=== PATIENT | female | born 1955 | race African-American/Black ===

== ENCOUNTER 2019-10-16 00:11 | Emergency (ER) | payer SELFPAY ==
--- NOTE | 2019-10-16 02:12 | ER ---
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 pt stated she was seen by PCP prior to Thanksgiving. pt stated when she has a BM "it feels like something is trying to come out" pt stated "I think I have a tapeworm." a few months back pt stated she had a BM, wiped and "pulled and heard a pop". Transition of care: patient was not received from another setting of care. Onset of symptoms is unknown. Risk Assessment: Do you want to hurt yourself or someone else? Patient reports no desire to harm self or others. Initial Sepsis Screen: Does the patient meet any 2 criteria? No. Patient's initial sepsis screen is negative. Does the patient have a suspected source of infection? No. Patient's initial sepsis screen is negative. Care prior to arrival: None. 00:44 Method Of Arrival: Ambulatory rr5 00:44 Acuity: DIANE 4 rr5 Triage Assessment: 00:50 General: Appears in no apparent distress. Behavior is calm, cooperative. Pain: Denies rr5 pain. Historical: - Allergies: 00:50 No Known Allergies; rr5 - Home Meds: 00:50 None [Active]; rr5 - PMHx: 00:50 None; rr5 - PSHx: 00:50 Hysterectomy; rr5 - Immunization history:: Adult Immunizations unknown. - Social history:: Smoking status: Patient/guardian denies using tobacco, the patient reports quitting approximately 13 years ago. - Ebola Screening: : No symptoms or risks identified at this time. Screenin:01 Abuse screen: Denies threats or abuse. Nutritional screening: No deficits noted. jd3 Tuberculosis screening: No symptoms or risk factors identified. Fall Risk Ambulatory Aid- None/Bed Rest/Nurse Assist (0 pts). Gait- Normal/Bed Rest/Wheelchair (0 pts) Mental Status- Oriented to own ability (0 pts). Total Sant[place] Fall Scale indicates No Risk (0-24 pts). Assessment: 00:57 General: Appears in no apparent distress. uncomfortable, Behavior is calm, cooperative, jd3 appropriate for age. Pain: Denies pain. Noted to be pt reported intromittant pain in lower abdomin. no pain reported at this time. Neuro: Level of Consciousness is awake, alert, obeys commands, Oriented to person, place, time, situation. Cardiovascular: Capillary refill < 3 seconds Patient's skin is warm and dry. Respiratory: Airway is patent Respiratory effort is even, unlabored, Respiratory pattern is regular, symmetrical, Denies cough, shortness of breath. GI: Abdomen is round non-distended, Bowel sounds present X 4 quads. Abd is soft and non tender X 4 quads. Reports feeling like something is trying to come out of her rectum when she defecates. Patient currently denies bloody stool, constipation, diarrhea, nausea, rectal bleeding, vomiting. : No signs and/or symptoms were reported regarding the genitourinary system. EENT: No signs and/or symptoms were reported regarding the EENT system. Derm: Skin is intact, Skin is dry, Skin is normal, Skin temperature is warm. Musculoskeletal: Circulation, motion, and sensation intact. Range of motion: intact in all extremities. 01:56 Reassessment: Patient appears in no apparent distress at this time. No changes from jd3 previously documented assessment. Patient and/or family updated on plan of care and expected duration. Pain level reassessed. Patient is alert, oriented x 3, equal unlabored respirations, skin warm/dry/pink. 02:18 Reassessment: Patient appears in no apparent distress at this time. Patient is alert, rr5 oriented x 3, equal unlabored respirations, skin warm/dry/pink. discharge instruction given and explained without complaints made, verbalized understanding. Vital Signs: 00:43 BP 154 / 79; Pulse 82; Resp 16; Temp 97.6(TE); Pulse Ox 97% on R/A; Weight 118.39 kg rr5 (R); Height 5 ft. 7 in. (170.18 cm) (R); Pain 0/10; 01:56 BP 149 / 79; Pulse 66; Resp 17 S; Pulse Ox 95% on R/A; jd3 00:43 Body Mass Index 40.88 (118.39 kg, 170.18 cm) rr5 ED Course: 00:16 Patient arrived in ED. ag3 00:43 Arm band placed on Patient placed in an exam room, on a stretcher, on pulse oximetry, rr5 Patient notified of wait time. 00:50 Chris Salvador, RN is Primary Nurse. jd3 00:50 Triage completed. rr5 00:59 Jorge Sutherland MD is Attending Physician. tw4 01:02 Patient has correct armband on for positive identification. Bed in low position. Call jd3 light in reach. Side rails up X 1. Adult w/ patient. 01:17 Chris Salvador, BERNICE is Primary Nurse. jd3 02:12 Bernard Patel MD is Referral Physician. tw4 02:12 Christine Wilkins MD is Referral Physician. tw4 02:12 Kurt Velarde MD is Referral Physician. tw4 02:19 No provider procedures requiring assistance completed. Patient did not have IV access rr5 during this emergency room visit. Administered Medications: No medications were administered Outcome: 02:11 Discharge ordered by . tw4 02:19 Discharged to home ambulatory. rr5 02:19 Condition: stable 02:19 Discharge instructions given to patient, Instructed on discharge instructions, follow up and referral plans. medication usage, Demonstrated understanding of instructions, follow-up care, medications, Prescriptions given X 1. 02:20 Patient left the ED. rr5 Signatures: Chris Salvador, RN RN jJorge Nava MD MD tw4 Leatha Clarke ag3 Wilfred Hendricks RN RN rr5
[2019-10-16 03:55] VITALS: TEMP 97.6
[2019-10-16 03:57] VITALS: BP 149/79; O2SAT 95
--- NOTE | 2019-10-17 02:21 | EDPHYS ---
Physician Documentation [facility] Name: Maddy Villarreal Age: 63 yrs Sex: Female : 1955 Arrival Date: 10/16/2019 Time: 00:16 Bed 4 Private MD: ED Physician Jorge Sutherland HPI: 10/16 03:21 This 63 yrs old Black Female presents to ER via Ambulatory with complaints of RECTAL tw4 PROBLEM. 03:21 The patient presents to the emergency department with pain in the rectal area, that is tw4 mild. Onset: The symptoms/episode began/occurred just prior to arrival. Context: the patient has no known special context relating to the rectal area complaint(s). Modifying factors: The symptoms are alleviated by nothing, The symptoms are aggravated by nothing. Associate signs and symptoms: The patient has no apparent associated signs or symptoms. The patient has not experienced similar symptoms in the past. Historical: - Allergies: 00:50 No Known Allergies; rr5 - Home Meds: 00:50 None [Active]; rr5 - PMHx: 00:50 None; rr5 - PSHx: 00:50 Hysterectomy; rr5 - Immunization history:: Adult Immunizations unknown. - Social history:: Smoking status: Patient/guardian denies using tobacco, the patient reports quitting approximately 13 years ago. - Ebola Screening: : No symptoms or risks identified at this time. ROS: 03:21 Constitutional: Negative for fever, chills, and weight loss, Eyes: Negative for injury, tw4 pain, redness, and discharge, Cardiovascular: Negative for chest pain, palpitations, and edema, Respiratory: Negative for shortness of breath, cough, wheezing, and pleuritic chest pain. 03:21 Abdomen/GI: Positive for constipation, rectal pain, Negative for abdominal pain, nausea and vomiting, nausea, vomiting, and diarrhea, nausea, vomiting, diarrhea, abdominal cramps, abdominal distension, anorexia, dysphagia, hematemesis, black/tarry stool, rectal bleeding, bowel incontinence, flatulence. Exam: 03:21 Constitutional: This is a well developed, well nourished patient who is awake, alert, tw4 and in no acute distress. Head/Face: Normocephalic, atraumatic. Chest/axilla: Normal chest wall appearance and motion. Nontender with no deformity. No lesions are appreciated. Cardiovascular: Regular rate and rhythm with a normal S1 and S2. No gallops, murmurs, or rubs. Normal PMI, no JVD. No pulse deficits. Respiratory: Lungs have equal breath sounds bilaterally, clear to auscultation and percussion. No rales, rhonchi or wheezes noted. No increased work of breathing, no retractions or nasal flaring. 03:21 Abdomen/GI: Inspection: abdomen appears normal, Bowel sounds: normal, Palpation: abdomen is soft and non-tender, Rectal exam: rectal tone normal, Stool: brown, guaiac negative, hemorrhoid(s), external, without bleeding, without inflammation, without thrombosis, without pain, mass, is not appreciated. Vital Signs: 00:43 BP 154 / 79; Pulse 82; Resp 16; Temp 97.6(TE); Pulse Ox 97% on R/A; Weight 118.39 kg rr5 (R); Height 5 ft. 7 in. (170.18 cm) (R); Pain 0/10; 01:56 BP 149 / 79; Pulse 66; Resp 17 S; Pulse Ox 95% on R/A; jd3 00:43 Body Mass Index 40.88 (118.39 kg, 170.18 cm) rr5 MDM: 01:46 Patient medically screened. tw4 03:21 Differential diagnosis: hemorrhoids. Data reviewed: vital signs, nurses notes. Data tw4 interpreted: Pulse oximetry: Interpretation: normal. Counseling: I had a detailed discussion with the patient and/or guardian regarding: the historical points, exam findings, and any diagnostic results supporting the discharge/admit diagnosis. Special discussion: I discussed with the patient/guardian in detail that at this point there is no indication for admission to the hospital. It is understood, however, that if the symptoms persist or worsen the patient needs to return immediately for re-evaluation. Administered Medications: No medications were administered Disposition: 10/16/19 02:11 Discharged to Home. Impression: Constipation, unspecified. - Condition is Stable. - Discharge Instructions: Constipation, Adult, High-Fiber Diet. - Prescriptions for Colace 100 mg Oral Tablet - take 1 tablet by ORAL route every 12 hours; 14 tablet. - Medication Reconciliation Form, Thank You Letter, Antibiotic Education, Prescription Opioid Use form. - Follow up: Private Physician; When: Upon discharge from the Emergency Department; Reason: Recheck today's complaints, Continuance of care. Follow up: Bernard Patel MD; When: Upon discharge from the Emergency Department; Reason: Recheck today's complaints, Continuance of care. Follow up: Christine Wilkins MD; When: Upon discharge from the Emergency Department; Reason: Recheck today's complaints, Continuance of care. Follow up: Kurt Velarde MD; When: Upon discharge from the Emergency Department; Reason: Recheck today's complaints, Continuance of care. - Problem is new. - Symptoms have improved. Signatures: Jorge Sutherland MD MD tw4 Wilfred Hendricks RN RN rr5 Corrections: (The following items were deleted from the chart) 02:13 02:11 10/16/2019 02:11 Discharged to Home. Impression: Constipation, unspecified. tw4 Condition is Stable. Forms are Medication Reconciliation Form, Thank You Letter, Antibiotic Education, Prescription Opioid Use. Follow up: Private Physician; When: Upon discharge from the Emergency Department; Reason: Recheck today's complaints, Continuance of care. Problem is new. Symptoms have improved. tw4 02:20 02:13 10/16/2019 02:11 Discharged to Home. Impression: Constipation, unspecified. rr5 Condition is Stable. Discharge Instructions: Constipation, Adult, High-Fiber Diet. Prescriptions for Colace 100 mg Oral Tablet - take 1 tablet by ORAL route every 12 hours; 14 tablet. and Forms are Medication Reconciliation Form, Thank You Letter, Antibiotic Education, Prescription Opioid Use. Follow up: Private Physician; When: Upon discharge from the Emergency Department; Reason: Recheck today's complaints, Continuance of care. Follow up: Bernard Patel; When: Upon discharge from the Emergency Department; Reason: Recheck today's complaints, Continuance of care. Follow up: Christine Wilkins; When: Upon discharge from the Emergency Department; Reason: Recheck today's complaints, Continuance of care. Follow up: Kurt Velarde; When: Upon discharge from the Emergency Department; Reason: Recheck today's complaints, Continuance of care. Problem is new. Symptoms have improved. tw4
== END 2019-10-16 02:20 | disposition home or self-care (01) ==
LOC: ER 00:11
DX: K59.00 Constipation, unspecified (principal)
CPT/HCPCS: 99283

== ENCOUNTER 2020-10-12 01:20 | Inpatient (IN) | payer SELFPAY ==
--- OUTSIDE RECORDS SUMMARY | 2020-10-12 01:22 | XMS REPORT | Clinical Summary ---
:1955 Author Organization [facility] Address [address] [place] [id number] Care Team Providers Name Role Phone Asked, Pcp Primary Care Provider Unavailable Allergies Active Allergy Reactions Severity Noted Date Comments Milk Other (See Comments) 06/20/2017 headach e Medications No known medications Active Problems Problem Noted Date Fatigue Surgical History Surgery Date Site/Laterality Comments TOTAL ABDOMINAL HYSTERECTOMY 11/12/1992 - 11/11/1993 done for fibroids Medical History Medical History Date Comments Fatigue Family History Medical History Relation Name Comments Dementia Brother Diabetes Brother Ovarian cancer Maternal Grandmother Alzheimer's disease Mother Diabetes Mother Hypertension Mother Ovarian cancer Paternal Grandmother Relation Name Status Comments Brother Alive Father Maternal Grandmother Mother Alive Paternal Grandmother Social History Tobacco Use Types Packs/Day Years Used Date Former Smoker Cigarettes Alcohol Use Drinks/Week oz/Week Comments No Sex Assigned at Date Recorded Not on file Obstetrics History Grav Para Term Pre Abrt (TAB) (SAB) (Ect) Mult Lvng Comments 5 2 2 3 2 1 2 Date Outcome GA Total Labor/2nd/3rd Weight Sex Delivery Anes PTL Cecilia A 1 A5 Name Clin Labor Term M Vag-Spont Term F Vag-Spont SAB SAB Ectopic Last Filed Vital Signs Not on file Plan of Treatment Health Maintenance Due Date Last Done Comments CERVICAL CANCER SCREENING 1978 COLONOSCOPY SCREENING 2007 SHINGLES VACCINES (#1) 2007 BREAST CANCER SCREENING 06/20/2019 06/20/2017 INFLUENZA VACCINE 06/12/2020 Results Not on fileafter 10/12/2019 Advance Directives For more information, please contact: [phone] Type Date Recorded 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
[2020-10-12] MEDS ORDERED: HYDROMORPHONE HCL 1 MG/ML INJ ONE ×2 (02:31→04:40)
[2020-10-12] MEDS ORDERED: ONDANSETRON 4 MG/2 ML VIAL ONE ×3 (02:31→11:05)
[2020-10-12] MEDS ORDERED: MAGNES/ALUMIN/SIMET 30ML UCUP ONE (02:31)
[2020-10-12] MEDS ORDERED: NA CHLORIDE 0.9% 1,000 ML ONE (02:31)
[2020-10-12] MEDS ORDERED: FAMOTIDINE 20 MG/2 ML VIAL IV ONE (02:32)
[2020-10-12 02:45] LABS: Absolute Lymphocytes (CBC) 2.5 K/uL (0.7-4.9); Basophils % 1.2 % (0-1.3); Hematocrit 36.9 % (36.0-45.0); RBC Red Blood Cell Count 4.33 M/uL (3.86-4.86)
[2020-10-12 02:56] LABS: ALT/SGPT 21 U/L (12-78); AST/SGOT 20 U/L (15-37); Albumin 3.6 g/dL (3.4-5.0); Alkaline Phosphatase 83 U/L (45-117); BUN Blood Urea Nitrogen 9 mg/dL (7-18); Bicarbonate 27 mmol/L (21-32); Bilirubin Direct 0.1 mg/dL (0-0.2); Bilirubin Total 0.5 mg/dL (0.2-1.0); Glucose Level 103 mg/dL (74-106); Lipase 53 U/L (73-393); Potassium 3.5 mmol/L (3.5-5.1); Protein, Total 7.9 g/dL (6.4-8.2); Sodium Level 144 mmol/L (136-145)
[2020-10-12] MEDS ORDERED: PIPER/TAZO/NS 3.375gm 3.375 GM/100 ML BAG ONE (04:32)
--- NOTE | 2020-10-12 04:37 | ER ---
Nurse's Notes [facility] Name: Maddy Villarreal Age: 64 yrs Sex: Female : 1955 Arrival Date: 10/12/2020 Time: 01:22 Bed 18 Private MD: Diagnosis: Acute appendicitis Presentation: 10/12 01:39 Chief complaint: Patient states: Epigastric pain since 1830 today, pain does not aj1 radiate. Patient reports nausea, denies V/D. Denies fever. Coronavirus screen: Client denies travel out of the [place] in the last 14 days. At this time, the client does not indicate any symptoms associated with coronavirus-19. Ebola Screen: Patient denies travel to an Ebola-affected area in the 21 days before illness onset. Initial Sepsis Screen: Does the patient meet any 2 criteria? No. Patient's initial sepsis screen is negative. Does the patient have a suspected source of infection? Yes: Acute abdominal pain. Risk Assessment: Do you want to hurt yourself or someone else? Patient reports no desire to harm self or others. Onset of symptoms was October 11, 2020 at 18:30. 01:39 Method Of Arrival: Ambulatory aj1 01:39 Acuity: DIANE 3 aj1 Triage Assessment: 01:40 General: Appears in no apparent distress. uncomfortable, Behavior is calm, cooperative, aj1 appropriate for age. Pain: Complains of pain in epigastric area. GI: Reports upper abdominal pain, nausea, Patient currently denies diarrhea, vomiting. Historical: - Allergies: 01:40 No Known Allergies; aj1 - Home Meds: 01:40 None [Active]; aj1 - PMHx: 01:40 None; aj1 - PSHx: 09:04 Hysterectomy; Tubal ligation; sv - Immunization history:: Flu vaccine is not up to date. - Social history:: Smoking status: Patient denies any tobacco usage or history of. Patient/guardian denies using alcohol, street drugs, The patient lives with family. - Family history:: not pertinent. Screenin:41 Abuse screen: Denies threats or abuse. Denies injuries from another. Nutritional aj1 screening: No deficits noted. Tuberculosis screening: No symptoms or risk factors identified. 07:20 Fall Risk None identified. sv Assessment: 01:41 General: Appears in no apparent distress. uncomfortable, Behavior is calm, cooperative, aj1 appropriate for age. Pain: Complains of pain in epigastric area Pain does not radiate. Pain currently is 8 out of 10 on a pain scale. Quality of pain is described as aching, Pain began 7 hours ago. Neuro: Level of Consciousness is awake, alert, obeys commands, Oriented to person, place, time, situation. Cardiovascular: Patient's skin is warm and dry. Respiratory: Airway is patent Respiratory effort is even, unlabored, Respiratory pattern is regular, symmetrical. GI: Abdomen is non-distended, Bowel sounds present X 4 quads. Abd is soft X 4 quads Abdomen is tender to palpation in epigastric area, right upper quadrant and left upper quadrant Reports upper abdominal pain, nausea, Patient currently denies diarrhea, vomiting. : No signs and/or symptoms were reported regarding the genitourinary system. EENT: No signs and/or symptoms were reported regarding the EENT system. Derm: No signs and/or symptoms reported regarding the dermatologic system. Skin is pink, warm \T\ dry. normal. Musculoskeletal: No signs and/or symptoms reported regarding the musculoskeletal system. Circulation, motion, and sensation intact. 02:29 Reassessment: After Dilaudid administration patient's O2 sat dropped to 89% on room aj1 air. Patient placed on O2 \T\ 2L per nc, O2 sat up to 97%. 03:08 Reassessment: Patient and/or family updated on plan of care and expected duration. Pain aj1 level reassessed. Reassessment: Patient states feeling better. Patient states symptoms have improved. General: Appears in no apparent distress. comfortable, Behavior is calm, cooperative, appropriate for age. Neuro: Level of Consciousness is awake, alert, obeys commands, Oriented to person, place, time, situation. Cardiovascular: Patient's skin is warm and dry. Respiratory: Airway is patent Respiratory effort is even, unlabored, Respiratory pattern is regular, symmetrical. Derm: Skin is pink, warm \T\ dry. normal. 04:20 Reassessment: Patient appears in no apparent distress at this time. Patient and/or sg family updated on plan of care and expected duration. Pain level reassessed. Patient is alert, oriented x 3, equal unlabored respirations, skin warm/dry/pink. pt complaining of pain at this time, at bedside updating pt on results and need for admission for evaluation and possible surgery due to appendicitis, pt stated understanding, V/O received per for Dilaudid 1 mg IVP for pain. 04:50 Reassessment: pt reports last PO intake was GI cocktail at 0314 by RN. sg Vital Signs: 01:39 BP 151 / 66; Pulse 64; Resp 18; Temp 97.8(O); Pulse Ox 99% on R/A; Weight 116.12 kg aj1 (R); Height 5 ft. 7 in. (170.18 cm) (R); Pain 8/10; 02:30 BP 146 / 53; Pulse 58; Resp 16; Pulse Ox 98% on 2 lpm NC; aj1 03:09 BP 143 / 52; Pulse 51; Resp 18; Pulse Ox 100% on R/A; aj1 07:23 BP 139 / 70; Pulse 53; Resp 18; Pulse Ox 100% ; sv 01:39 Body Mass Index 40.09 (116.12 kg, 170.18 cm) aj1 ED Course: 01:22 Patient arrived in ED. cl3 01:39 Adrienne Rae, RN is Primary Nurse. aj1 01:40 Triage completed. aj1 01:40 Arm band placed on Patient placed in an exam room. aj1 01:41 Patient has correct armband on for positive identification. Bed in low position. Call aj1 light in reach. Side rails up X 1. 01:41 No provider procedures requiring assistance completed. aj1 01:50 Willam Biswas MD is Attending Physician. ma2 03:13 Primary Nurse role handed off by Adrienne Rae, RN sg 03:13 Evgeny Ferris, RN is Primary Nurse. sg 03:19 Report given to BERNICE Fernandes. aj1 03:[address] via stretcher. sg 03:47 CT Abd/Pelvis - IV Contrast Only In Process Unspecified. EDMS 04:20 Initial lab(s) drawn, by me, sent to lab. a PT and Covid swab were obtained. sg 04:29 Chest Single View XRAY In Process Unspecified. EDMS 04:37 Audi Gonzales MD is Hospitalizing Provider. ma2 05:00 COVID swab sent to lab. sg 05:00 EKG done, by ED staff, reviewed by Willam Biswas MD. sg 08:00 Patient admitted, IV remains in place. intact. sv 08:46 Attending Physician role handed off by Willam Biswas MD cha 08:46 Johnson Garcia MD is Attending Physician. lee Administered Medications: 02:25 Drug: Zofran (Ondansetron) 4 mg Route: IVP; Site: right antecubital; aj1 03:08 Follow up: Response: No adverse reaction aj1 02:25 Drug: Dilaudid 1 mg Route: IVP; Site: right antecubital; aj1 03:08 Follow up: Response: No adverse reaction; Pain is decreased aj1 02:25 Drug: NS 0.9% 1000 ml Route: IV; Rate: 1 bolus; Site: right antecubital; aj1 03:50 Follow up: Response: No adverse reaction; IV Status: Completed infusion; IV Intake: sg 990ml 02:26 Drug: Pepcid 20 mg Route: IVP; Site: right antecubital; aj1 03:08 Follow up: Response: No adverse reaction aj1 03:07 Drug: GI Cocktail without - (Maalox Suspension 30 ml, Lidocaine Liquid 2 % 15 aj1 ml) Route: PO; 03:50 Follow up: Response: No adverse reaction sg 04:20 Drug: Zosyn 3.375 grams Route: IVPB; Infused Over: 60 mins; Site: right antecubital; sg 05:20 Follow up: Response: No adverse reaction; IV Status: Completed infusion sg 04:40 Drug: Dilaudid 1 mg Route: IVP; Site: right antecubital; sg 05:35 Follow up: Response: No adverse reaction; Pain is decreased sg Intake: 03:50 IV: 990ml; Total: 990ml. sg Outcome: 04:37 Decision to Hospitalize by Provider. ma2 08:00 Admitted to ER Hold. Please see [facility] for further documentation. sv 08:00 Condition: stable 08:00 Instructed on the need for admit. 09:54 Patient left the ED. sv Signatures: Dispatcher [employer] EDMS Adrienne Rae RN RN aj1 Alva Mclean RN RN sv Gay, Steven, RN RN sg Anderson, Corey, MD MD cha Alzahri, Mohammad, MD MD ma2 Lewis, Charde cl3 Corrections: (The following items were deleted from the chart) 09:04 01:40 PSHx: None; aj1 sv
--- NOTE | 2020-10-12 04:37 | EDPHYS ---
Physician Documentation [facility] Name: Maddy Villarreal Age: 64 yrs Sex: Female : 1955 Arrival Date: 10/12/2020 Time: 01:22 Bed 18 Private MD: ED Physician Johnson Garcia HPI: 10/12 02:18 This 64 yrs old Black Female presents to ER via Ambulatory with complaints of Abdominal ma2 Pain. 02:18 The patient presents with abdominal pain. Onset: The symptoms/episode began/occurred ma2 gradually, 1 day(s) ago. Associated signs and symptoms: Pertinent negatives: nausea and vomiting, blood in stools, diarrhea, fever. Severity of pain: At its worst the pain was moderate in the emergency department the pain is unchanged. The patient has not experienced similar symptoms in the past. Historical: - Allergies: 01:40 No Known Allergies; aj1 - Home Meds: 01:40 None [Active]; aj1 - PMHx: 01:40 None; aj1 - PSHx: 09:04 Hysterectomy; Tubal ligation; sv - Immunization history:: Flu vaccine is not up to date. - Social history:: Smoking status: Patient denies any tobacco usage or history of. Patient/guardian denies using alcohol, street drugs, The patient lives with family. - Family history:: not pertinent. ROS: 02:18 Constitutional: Negative for fever, chills, and weight loss. ma2 02:18 All other systems are negative. Exam: 02:18 Constitutional: This is a well developed, well nourished patient who is awake, alert, ma2 and in no acute distress. Head/Face: Normocephalic, atraumatic. Eyes: Pupils equal round and reactive to light, extra-ocular motions intact. Lids and lashes normal. Conjunctiva and sclera are non-icteric and not injected. Cornea within normal limits. Periorbital areas with no swelling, redness, or edema. ENT: Nares patent. No nasal discharge, no septal abnormalities noted. Tympanic membranes are normal and external auditory canals are clear. Oropharynx with no redness, swelling, or masses, exudates, or evidence of obstruction, uvula midline. Mucous membranes moist. Neck: Trachea midline, no thyromegaly or masses palpated, and no cervical lymphadenopathy. Supple, full range of motion without nuchal rigidity, or vertebral point tenderness. No Meningismus. Chest/axilla: Normal chest wall appearance and motion. Nontender with no deformity. No lesions are appreciated. Cardiovascular: Regular rate and rhythm with a normal S1 and S2. No gallops, murmurs, or rubs. Normal PMI, no JVD. No pulse deficits. Respiratory: Lungs have equal breath sounds bilaterally, clear to auscultation and percussion. No rales, rhonchi or wheezes noted. No increased work of breathing, no retractions or nasal flaring. Abdomen/GI: Soft, non-tender, with normal bowel sounds. No distension or tympany. No guarding or rebound. No evidence of tenderness throughout. Back: No spinal tenderness. No costovertebral tenderness. Full range of motion. MS/ Extremity: Pulses equal, no cyanosis. Neurovascular intact. Full, normal range of motion. Neuro: Awake and alert, GCS 15, oriented to person, place, time, and situation. Cranial nerves II-XII grossly intact. Motor strength 5/5 in all extremities. Sensory grossly intact. Cerebellar exam normal. Normal gait. Vital Signs: 01:39 BP 151 / 66; Pulse 64; Resp 18; Temp 97.8(O); Pulse Ox 99% on R/A; Weight 116.12 kg aj1 (R); Height 5 ft. 7 in. (170.18 cm) (R); Pain 8/10; 02:30 BP 146 / 53; Pulse 58; Resp 16; Pulse Ox 98% on 2 lpm NC; aj1 03:09 BP 143 / 52; Pulse 51; Resp 18; Pulse Ox 100% on R/A; aj1 07:23 BP 139 / 70; Pulse 53; Resp 18; Pulse Ox 100% ; sv 01:39 Body Mass Index 40.09 (116.12 kg, 170.18 cm) [facility] MDM: 01:50 Patient medically screened. me2 02:18 Differential diagnosis: gastritis, gastroesophageal reflux disease, Irritable bowel ma2 syndrome, pancreatitis. 04:36 Data reviewed: vital signs, nurses notes. Counseling: I had a detailed discussion with ma2 the patient and/or guardian regarding: the historical points, exam findings, and any diagnostic results supporting the discharge/admit diagnosis, the presence of at least one elevated blood pressure reading (>120/80) during this emergency department visit, the need for outpatient follow up. Response to treatment: There is no appreciated change of the patient's symptoms at this time. 10/12 01:51 Order name: Basic Metabolic Panel; Complete Time: 03:37 ma2 10/12 01:51 Order name: CBC with Diff; Complete Time: 03:37 ma2 10/12 01:51 Order name: Hepatic Function; Complete Time: 03:37 ma2 10/12 01:51 Order name: Lipase; Complete Time: 03:37 ma2 10/12 04:05 Order name: PT-INR; Complete Time: 06:33 ma2 10/12 02:11 Order name: CT Abd/Pelvis - IV Contrast Only ma2 10/12 04:05 Order name: Chest Single View XRAY; Complete Time: 08:46 ma2 10/12 06:26 Order name: SARS-COV-2 RT PCR; Complete Time: 06:33 EDMS 10/12 01:51 Order name: IV Saline Lock; Complete Time: 02:26 ma2 10/12 01:51 Order name: Labs collected and sent; Complete Time: 02:26 ma2 10/12 04:02 Order name: NPO; Complete Time: 05:10 ma2 10/12 04:05 Order name: EKG - Nurse/Tech; Complete Time: 05:10 ma2 Administered Medications: 02:25 Drug: Zofran (Ondansetron) 4 mg Route: IVP; Site: right antecubital; aj1 03:08 Follow up: Response: No adverse reaction aj1 02:25 Drug: Dilaudid 1 mg Route: IVP; Site: right antecubital; aj1 03:08 Follow up: Response: No adverse reaction; Pain is decreased aj1 02:25 Drug: NS 0.9% 1000 ml Route: IV; Rate: 1 bolus; Site: right antecubital; aj1 03:50 Follow up: Response: No adverse reaction; IV Status: Completed infusion; IV Intake: sg 990ml 02:26 Drug: Pepcid 20 mg Route: IVP; Site: right antecubital; aj1 03:08 Follow up: Response: No adverse reaction aj1 03:07 Drug: GI Cocktail without - (Maalox Suspension 30 ml, Lidocaine Liquid 2 % 15 aj1 ml) Route: PO; 03:50 Follow up: Response: No adverse reaction sg 04:20 Drug: Zosyn 3.375 grams Route: IVPB; Infused Over: 60 mins; Site: right antecubital; sg 05:20 Follow up: Response: No adverse reaction; IV Status: Completed infusion sg 04:40 Drug: Dilaudid 1 mg Route: IVP; Site: right antecubital; sg 05:35 Follow up: Response: No adverse reaction; Pain is decreased sg Disposition: 10/12/20 04:37 Hospitalization ordered by Audi Gonzales for Inpatient Admission. Preliminary diagnosis is Acute appendicitis. - Bed requested for DAY SURGERY OTHER. - Status is Inpatient Admission. sv - Condition is Stable. - Problem is new. - Symptoms are unchanged. Signatures: Dispatcher [employer] EDMS Liberty Wolf Angela, RN RN aj1 Alva Mclean RN RN Evgeny Ferris RN RN Johnson Garcia MD MD cha Smirch, Shelby, RN RN Willam Biswas MD MD ma2 Corrections: (The following items were deleted from the chart) 05:11 04:03 CORONAVIRUS+MR.LAB.BRZ ordered. EDID EDMS 07:43 04:37 Hospitalization Ordered by Audi Gonzales MD for Inpatient Admission. Preliminary diagnosis is Acute appendicitis. Bed requested for Telemetry/MedSurg (Inpatient). Status is Inpatient Admission. Condition is Stable. Problem is new. Symptoms are unchanged. ma 09:04 01:40 PSHx: None; aj1 sv 09:29 07:43 10/12/2020 04:37 Hospitalization Ordered by Audi Gonzales MD for Inpatient bd Admission. Preliminary diagnosis is Acute appendicitis. Bed requested for [facility] ER HOLD. Status is Inpatient Admission. Condition is Stable. Problem is new. Symptoms are unchanged. ss 09:54 09:29 10/12/2020 04:37 Hospitalization Ordered by Audi Gonzales MD for Inpatient sv Admission. Preliminary diagnosis is Acute appendicitis. Bed requested for DAY SURGERY OTHER. Status is Inpatient Admission. Condition is Stable. Problem is new. Symptoms are unchanged. bd
[2020-10-12 04:50] LABS: Protime INR 1.03
--- NOTE | 2020-10-12 07:24 | RAD REPORT ---
EXAM DESCRIPTION: Hardeep Single View10/12/2020 4:28 am CLINICAL HISTORY: Abdominal pain/preop for abdominal surgery COMPARISON: none FINDINGS: The lungs appear clear of acute infiltrate. The heart is normal size IMPRESSION: No acute abnormalities displayed
[2020-10-12] MEDS ORDERED: ACETAMINOPHEN 325 MG TABLET PO PRN (08:53)
[2020-10-12] MEDS ORDERED: MORPHINE 2 MG/ML SYR IV PRN (08:53)
[2020-10-12] MEDS ORDERED: ONDANSETRON 4 MG/2 ML VIAL IV PRN (08:53)
[2020-10-12] MEDS: NA CHLORIDE 0.9% 1,000 ML IV SCH ×3 (09:00→20:40)
[2020-10-12 09:07] VITALS: BMI 40.0
[2020-10-12] MEDS ORDERED: ACETAMINOPHEN 325 MG TABLET ONE (09:19)
[2020-10-12] MEDS ORDERED: MORPHINE 2 MG/ML SYR ONE (09:19)
[2020-10-12] MEDS ORDERED: INFLUENZA VACCINE (for 3y+) 0.5 ML DOSE IMVAC ONE (11:00)
[2020-10-12] MEDS ORDERED: PIPER/TAZO/NS 3.375gm 3.375 GM/100 ML BAG IVPB SCH ×2 (11:00→17:00)
[2020-10-12] MEDS ORDERED: LIDOCAINE 2% MPF 5 ML VIAL ONE (11:05)
[2020-10-12] MEDS ORDERED: propofoL 200 MG/20 ML VIAL IV ONE (11:05)
[2020-10-12] MEDS ORDERED: ROCURONIUM 50 MG/5 ML VIAL IV ONE (11:05)
[2020-10-12] MEDS ORDERED: MIDAZOLAM HCL 2 MG/2 ML INJ ONE (11:05)
[2020-10-12] MEDS ORDERED: dexAMETHasone 10 MG/ML VIAL ONE (11:05)
[2020-10-12] MEDS ORDERED: FENTANYL CITR 100 MCG/2 ML ONE (11:05)
[2020-10-12] MEDS ORDERED: KETOROLAC 30 MG/ML INJ ONE (11:06)
--- NOTE | 2020-10-12 11:34 | HP ---
Date of Admission: 10/12/2020 Diagnosis: Acute appendicitis. History Of Present Illness: This is the case of a 64-year-old patient female who complained of abdom inal pain for about 1 day in duration. It gets worse associated with a nausea. No dysuria, hematuri a, hematochezia, melena. No recent traveling out of the country. No family member sick at home. Th e pain got worse. She comes today to the ER, diagnosed with appendicitis and emergent book in OR was done. Allergies: NONE. Medications: None. Medical History: None. Past Surgical History: Include hysterectomy with a midline incision and tubal ligation. Social History: She does not smoke. She does not drink alcohol. She has no previous colonoscopy, although she was advised the importance of colonoscopies on her age for screening. She was counseled about having colonoscopy even after the surgery in the next few wee ks when the emergency goes away. Review of Systems: See H and P. 10 points otherwise unremarkable. Physical Examination: General: The patient is awake, alert. Pupils: Equal and reactive, anicteric. Neck: Supple. Chest: Clear. Abdomen: Right lower quadrant tenderness with guarding and rebound. Psoas sign positive. Breasts: Deferred. Pelvic: Deferred. RECTAL: Deferred. Extremities: Good capillary refill. Neurologic: Cranial nerves 2 through 12 grossly within normal limits. Laboratory Data: Blood work shows WBC count of 10.1, hemoglobin of 12.2, and platelets of 218. INR is 1.03. Chloride is 112. Lipase 53. CAT scan of the abdomen and pelvis, official report still pen ding, although preliminary report interpreted by radiologist as findings consistent with acute append icitis, dilated appendix, surrounding inflammatory stranding present with appendicolith present in th e appendix. Assessment: This is a 64-year-old patient with acute appendicitis. Plan: The benefits, alternatives, and risks of emergent laparoscopic possible open appendectomy full y explained to the patient which include, but not limited to infection, bleeding, damage to adjacent structures, anesthesia complication, TN, and even . She also understands this may not relieve s ymptoms. She might need more than one surgical intervention. Once again, she was counseled the impo rtance of having a routine colonoscopy even after the surgery is done, especially after the surgery i s done since we will like to make sure that there is no neoplasia causing this appendicitis. At this time, we might not be able to determine that at this moment. DUNCAN/HOA Voice ID: [id number]
--- NOTE | 2020-10-12 11:39 | RAD REPORT ---
EXAM DESCRIPTION: CT - Abdomen Pelvis W Contrast - 10/12/2020 6:51 am ADDENDUM #1 THIS REPORT CONTAINS FINDINGS THAT MAY BE CRITICAL TO PATIENT CARE: The findings were verbally discussed via telephone conference with Dr. Willam Biswas by Dr. Kate Ramirez on 10/12/2020 4:00 AM FREE LANCE ARTIST .The results were acknowledged and understood. Electronically signed by: Lorena Ramirez MD 10/12/2020 4:00 AM FREE LANCE ARTIST End of Addendum EXAM DESCRIPTION: CT Abdomen and Pelvis With Intravenous Contrast CLINICAL HISTORY: The patient is 64 years old and is Female; ABD PAIN TECHNIQUE Axial computed tomography images of the abdomen and pelvis with intravenous contrast. Sa gittal and coronal reformatted images were created and reviewed. This CT exam was performed using o ne or more of the following dose reduction techniques: automated exposure control, adjustment of th e mA and/or kV according to patient size, and/or use of iterative reconstruction technique. COMPARISON: No relevant prior studies available. FINDINGS: LUNG BASES: Minimal dependent densities in the lung bases are present. ABDOMEN: LIVER: The liver is enlarged and mildly fatty. GALLBLADDER AND BILE DUCTS: No calcified stones. No ductal dilation. PANCREAS: No ductal dilation. No mass. SPLEEN: Unremarkable. ADRENALS: Unremarkable. No mass. KIDNEYS AND URETERS: Unremarkable. The kidneys enhance symmetrically. No obstructing renal or ure teral calculus is seen. No hydronephrosis or hydroureter. No perinephric fluid or stranding. STOMACH AND BOWEL: The stomach is distended with fluid and air. The small bowel is normal in [place] bon. Stool is noted throughout colon. A few scattered colonic diverticula are present without surroun ding inflammation. There is no bowel obstruction. PELVIS: APPENDIX: The appendix is dilated measuring up to 1.2 cm. Enhancement of the appendiceal wall wit h surrounding inflammatory stranding is present. Appendicoliths are present within the appendix. BLADDER: Unremarkable. No mass. REPRODUCTIVE: The patient is status post hysterectomy. ABDOMEN and PELVIS: INTRAPERITONEAL SPACE: Unremarkable. No free air. No significant fluid collection. BONES/JOINTS: No acute fracture. SOFT TISSUES: The soft tissues are normal. VASCULATURE: Minimal atherosclerosis of the aorta is present. No abdominal aortic aneurysm. LYMPH NODES: Unremarkable. No enlarged lymph nodes. IMPRESSION: Findings consistent with acute appendicitis. No evidence of periappendiceal abscess. Electronically signed by: Lorena Ramirez MD 10/12/2020 3:54 AM FREE LANCE ARTIST Due to temporary technical issues with the PACS/Fluency reporting system, reports are being signed by the in house radiologists without review as a courtesy to insure prompt reporting. The interpreting radiologist is fully responsible for the content of the report.
[2020-10-12] MEDS ORDERED: Ringers Lactate 1,000 ML IV ONE (12:12)
--- NOTE | 2020-10-12 12:16 | P.BOP ---
Preoperative diagnosis: acute appendicitis, hx of open hysterectomy, obesity Postoperative diagnosis: same, intrabdominal adhesiona Primary procedure: Laparoscopic appendectomy. Secondary procedure: Laparoscopic lysis of adhesions Safety Grooving Machine Operator: BASSAM LEI (DRUM TESTER) Estimated blood loss: <10cc Specimen: jen Findings: as above Anesthesia: General Complications: None Transferred to: Recovery Room Condition: Good
[2020-10-12] MEDS ORDERED: HYDROCODONE/APAP 5/325 MG TAB PO PRN (12:18)
[2020-10-12] MEDS ORDERED: NEOSTIGMINE 1 MG/ML -5 ML ONE (12:27)
[2020-10-12] MEDS ORDERED: GLYCOPYRROLATE 0.2 MG/ML SYR ONE (12:27)
[2020-10-12] MEDS ORDERED: LIDOCAINE VISCOUS 2% SOLN 15 ML UDC TOP ONE (12:58)
[2020-10-12] MEDS ORDERED: SUCCINYLCHOLINE 20 MG/ML (10 ML) IV ONE (13:00)
--- NOTE | 2020-10-12 13:26 | OP ---
Date of Procedure: 10/12/2020 Surgeon: Audi Gonzales MD Preoperative Diagnoses: Acute appendicitis, history of open hysterectomy in the past. Postoperative Diagnoses: Acute appendicitis, history of open hysterectomy in the past, lower abdomin al adhesions. Procedures Performed: Laparoscopic appendectomy, laparoscopic lysis of adhesions. Anesthesia: General plus local. Findings: Intraabdominal adhesions, lower abdomen. They were released with the help of LigaSure dev ice. The appendix looks inflamed. The base of the appendix seems to be spared. The rest of the jen endix looks inflamed and dilated. Indications: This is the case of a 64-year-old patient, comes to the ER a few hours ago complaining of abdominal pain, diagnosed with acute appendicitis. The patient never had a colonoscopy done befor e, though she was advised. The benefits, alternatives, and risks of laparoscopic, possible open appe ndectomy were fully explained which include, but not limited to infection, bleeding, damage to adjace nt structures, anesthesia complication, negative appendix, RI, and even . She also understands this may not relieve symptoms, she might need more than one surgical intervention. She understood, s igned a consent. Description Of Proecdure: The patient was brought to the operating room, placed in supine position. Anesthesia was done without complication. Abdominal area was prepped and draped in sterile fashion. Local anesthesia was applied in the periumbilical region. Incision was carried down to fascia, whi ch was opened under direct vision. Peritoneum was encountered and opened under direct vision. Vicry l #1 placed inside the fascia. Seb trocar was carefully introduced. Pneumoperitoneum was obtaine d. We directed our attention to the right lower quadrant. We noticed adhesions. The patient has pr evious open hysterectomy and tubal ligation, so we were expecting those adhesions. They were blockin g our view to the appendix. I found a spot in the left lower quadrant in suprapubic area that I can place 5 mm trocars and with the help of LigaSure, we proceeded to do lysis of adhesions. The appendi x was well visualized. We noticed the appendix to be inflamed and dilated, but the base of the appen jyoti seemed to be spared, so we created a window in the base of the appendix, transected that with End o RUSTY 45 mm 3.5. The mesoappendix was ligated sequentially with the help of LigaSure. Appendix was removed from abdominal cavity using EndoCatch through the umbilical incision. Area was inspected onc e again. No bowel leak. No bleeding. The area of lysis of adhesions showed no bleeding. At that m oment, I proceeded to remove the trocars under direct vision, deflated pneumoperitoneum, closed the f ascia with #1 Vicryl. Irrigated subcutaneous tissue, closed that with 3-0 chromic and skin with stap les. Sponge count, instrument counts were correct. The patient tolerated the procedure well. The p atient was sent to recovery in stable condition. The patient will remain in the hospital for observa tion and pain control and advance diet slowly. DUNCAN/HOA Voice ID: [id number] Report ID: [id number]
[2020-10-12] MEDS: PIPER/TAZO/NS 3.375gm 3.375 GM/100 ML BAG IVPB SCH (16:38)
[2020-10-13] MEDS: PIPER/TAZO/NS 3.375gm 3.375 GM/100 ML BAG IVPB SCH ×2 (00:29→08:42)
[2020-10-13] MEDS: NA CHLORIDE 0.9% 1,000 ML IV SCH (01:00)
[2020-10-13 04:06] LABS: Absolute Lymphocytes (CBC) 1.4 K/uL (0.7-4.9); Basophils % 0.1 % (0-1.3); Lymphocytes % 10.6 % (15.3-44.8); MPV 10.6 fL (7.6-11.3); RBC Red Blood Cell Count 3.97 M/uL (3.86-4.86)
[2020-10-13 04:38] LABS: BUN Blood Urea Nitrogen 8 mg/dL (7-18); Bicarbonate 24 mmol/L (21-32); Glucose Level 126 mg/dL (74-106); Potassium 3.5 mmol/L (3.5-5.1); Sodium Level 142 mmol/L (136-145)
[2020-10-13 05:31] LABS: Blood Morphology Comment NOT SEEN (NOT SEEN); Platelet Estimate ADEQ
--- NOTE | 2020-10-13 06:09 | EKG ---
Test Date: 2020-10-12 Test Time: 04:45:32 Veterans Contact Representative: SWG MEASUREMENT RESULTS: Intervals: Rate: 53 WA: 162 QRSD: 86 QT: 464 QTc: 435 Dickens: P: 6 WA: 162 QRS: 1 T: -29 INTERPRETIVE STATEMENTS: Sinus bradycardia Anterior infarct, age undetermined Abnormal ECG Compared to ECG 09/26/2005 15:53:00 Myocardial infarct finding now present Sinus rhythm no longer present T-wave abnormality no longer present Electronically Signed On 10-13-20 06:08:57 SPACE OPERATIONS OFFICER by Ramón Randolph
[2020-10-13 09:18] VITALS: O2SAT 97
--- NOTE | 2020-10-13 10:47 | PN ---
Date of Progress Note: 10/13/2020 Diagnosis: Acute appendicitis. Procedure: Laparoscopic appendectomy. Subjective: This is the case of a 64-year-old patient who underwent laparoscopic appendectomy christopher bryant. The patient feels great. No shortness of breath. No chest pain. No fever. Tolerating diet, passing flatus. Objective: Abdomen: Benign. Extremities: Good capillary refill. No tenderness. Chest: Clear. Disposition: The patient will be discharged home. Activity: As tolerated. No heavy lifting, no more than 20 pounds. Plan: Follow up in my office in 1 week. Call for appointment at [phone]. Medications: Include Augmentin 875 p.o. q.12, Tylenol #3 q.4 hours p.r.n. pain. DUNCAN/HOA Voice ID: [id number] Report ID: [id number]
[2020-10-13 13:00] VITALS: BP 149/68; TEMP 97.3
== END 2020-10-13 13:30 | disposition home or self-care (01) | DRG 343 ==
LOC: ER 01:20 → ERHOLD 08:38 → 2ND 12:21
PROVIDERS: ADMIT Surgery; ATTEND Surgery
PROC: 0DTJ4ZZ Resection of Appendix, Percutaneous Endoscopic Approach (ICD-10-PCS; principal; 2020-10-12 10:45)
DX: K37 Unspecified appendicitis (principal); Z90.710 Acquired absence of both cervix and uterus; Z98.51 Tubal ligation status; Z20.828 Contact with and (suspected) exposure to other viral communicable diseases
CPT/HCPCS: 36415; 71045; 74177; 80048; 80076; 83690; 85025; 85610; 88304; 93005; 94010; 96361; 96365; 96375; 99285; J0330; J1100; J1170; J2250; J2270; J2405; J2543; J2704; J2710; J3010; J7030; J7120; Q9967; U0003